=== PATIENT | female | born 2000 | race Caucasian/White ===

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

== ENCOUNTER 2020-01-16 21:36 | Emergency (ER) | payer SELFPAY ==
[~2020-01-16] VITALS: Ht 167.6 cm; Wt 72.7 kg
[2020-01-16 23:50] LABS: COLLECTION METHOD CLEAN CATCH
[2020-01-17 00:01] LABS: MUCOUS Present /lpf; PH 7 (5-8); SQUAMOUS EPITHELIAL 0-2 /hpf; URINE APPEARANCE Clear; URINE BACTERIA None Seen /hpf; URINE BILIRUBIN Negative (NEGATIVE); URINE BLOOD Negative (NEGATIVE); URINE COLOR Yellow; URINE GLUCOSE Negative (NEGATIVE); URINE KETONE Negative (NEGATIVE); URINE LEUKOCYTE ESTERASE Negative (NEGATIVE); URINE NITRATE Negative (NEGATIVE); URINE PROTEIN(semi-quant) Negative (NEGATIVE); URINE RBC 0-2 /hpf
[2020-01-17 00:30] LABS: BASO % 0.6 % (0.0-2.0); EOS # 0.1 (0.0-0.7); EOS % 2.3 % (0-4.0); GRAN # 3.6 (1.4-6.5); GRAN % 58.8 % (42.2-75.2); HEMATOCRIT 40.2 % (35.0-45.0); HEMOGLOBIN 13.2 g/dl (12.0-15.0); LYMPH # 1.9 (1.2-3.4); LYMPH % 30.6 % (20.0-51.0); MEAN CELL VOLUME 79 fl (80.0-95.0); MEAN CORPUSCULAR HEMOGLOBIN 26 pg (26.0-32.0); MEAN CORPUSCULAR HGB CONC 33 g/dl (33.0-37.0); MEAN PLATELET VOLUME 10.3 fl (7.4-10.4); MONO # 0.5 (0.1-0.6); MONO % 7.4 % (1.7-9.3); PLATELET COUNT 265 K/mm3 (130-400); RED BLOOD COUNT 5.09 M/mm3 (4.10-5.30); REDCELL DISTRIBUTION WIDTH-CV 12.3 % (11.5-14.5)
[2020-01-17 00:46] LABS: ALANINE AMINOTRANSFERASE 13 U/L (4-34); ALBUMIN 4.4 gm/dL (3.5-5.0); ALKALINE PHOSPHATASE 63 U/L (50-136); ANION GAP 10 mmol/L (7-16); AST,SGOT 15 U/L (15-37); BILIRUBIN,TOTAL 0.3 mg/dL (0.0-1.0); BLOOD UREA NITROGEN 12 mg/dL (7-17); C-REACTIVE PROTEIN < 0.5 mg/dL (0.0-0.9); CALCIUM 9.2 mg/dL (8.4-10.2); CARBON DIOXIDE 25 mmol/L (22-30); CHLORIDE 107 mmol/L (98-107); CREATININE, serum 0.65 (0.52-1.25); GLUCOSE 106 mg/dL (74-106); LIPASE 91 U/L (23-300); POTASSIUM 3.6 mmol/L (3.4-5.0); SODIUM 142 mmol/L (137-145); TOTAL PROTEIN 7.3 gm/dL (6.4-8.2)
[2020-01-17 04:13] VITALS: BP 116/76; PULSE 86; TEMP 98.1
== END 2020-01-17 04:24 | disposition home or self-care (01) ==
LOC: COL.ER 21:36
PROVIDERS: Physician Assistant
DX: R10.84 Generalized abdominal pain (principal); Z87.891 Personal history of nicotine dependence; Z90.89 Acquired absence of other organs
CPT/HCPCS: J1885; J2405; J7030; Q9967

== ENCOUNTER → 2020-09-20 | Outpatient (CLI) | payer MEDICAID ==
[~2020-09-20] MED LIST changes: +PROTONIX 40MG T40 MG PO
== END ==
LOC: COL.RAD 11:04
DX: N20.0 Calculus of kidney (principal); Z90.49 Acquired absence of other specified parts of digestive tract
CPT/HCPCS: Q9967

== ENCOUNTER 2020-10-26 09:28 | Emergency (ER) | payer MEDICAID ==
[~2020-10-26] VITALS: Ht 167.6 cm; Wt 78.6 kg
[2020-10-26 09:45] VITALS: TEMP 98.5
[2020-10-26 10:23] LABS: COLLECTION METHOD CLEAN CATCH
[2020-10-26 10:28] LABS: BASO % 0.4 % (0.0-2.0); EOS # 0.1 (0.0-0.7); EOS % 1.3 % (0-4.0); GRAN # 6.6 (1.4-6.5); GRAN % 79.5 % (42.2-75.2); HEMOGLOBIN 14.2 g/dl (12.0-15.0); LYMPH # 1.1 (1.2-3.4); LYMPH % 13.1 % (20.0-51.0); MEAN CELL VOLUME 78 fl (80.0-95.0); MEAN CORPUSCULAR HEMOGLOBIN 26 pg (26.0-32.0); MEAN CORPUSCULAR HGB CONC 33 g/dl (33.0-37.0); MEAN PLATELET VOLUME 9.9 fl (7.4-10.4); MONO # 0.5 (0.1-0.6); MONO % 5.5 % (1.7-9.3); PLATELET COUNT 303 K/mm3 (130-400); RED BLOOD COUNT 5.51 M/mm3 (4.10-5.30); REDCELL DISTRIBUTION WIDTH-CV 12.3 % (11.5-14.5)
[2020-10-26 10:31] LABS: MUCOUS Present /lpf; PH 7 (5-8); URINE APPEARANCE Hazy; URINE BACTERIA None Seen /hpf; URINE BILIRUBIN Negative (NEGATIVE); URINE BLOOD 3+ (NEGATIVE); URINE COLOR Yellow; URINE GLUCOSE Negative (NEGATIVE); URINE KETONE Negative (NEGATIVE); URINE LEUKOCYTE ESTERASE Trace (NEGATIVE); URINE NITRATE Negative (NEGATIVE); URINE PROTEIN(semi-quant) Negative (NEGATIVE); URINE RBC 0-2 /hpf; URINE UROBILINOGEN Negative (NEGATIVE)
[2020-10-26] MEDS ORDERED: CEPHALEXIN500 M1 PO (12:31)
[2020-10-26 12:48] VITALS: BP 128/78; PULSE 78
== END 2020-10-26 12:49 | disposition home or self-care (01) ==
LOC: COL.ER 09:28
PROVIDERS: Physician Assistant
DX: K59.00 Constipation, unspecified (principal); N39.0 Urinary tract infection, site not specified; Z87.891 Personal history of nicotine dependence
CPT/HCPCS: J1885; J7030

== ENCOUNTER 2021-03-15 13:56 | Emergency (ER) | payer MEDICAID ==
[~2021-03-15] VITALS: Ht 167.6 cm; Wt 70.5 kg
[2021-03-15 14:10] VITALS: TEMP 98.4
[2021-03-15 14:54] LABS: COLLECTION METHOD CLEAN CATCH
[2021-03-15 15:00] LABS: BASO % 0.4 % (0.0-2.0); EOS % 0.5 % (0-4.0); GRAN # 4.4 (1.4-6.5); GRAN % 78.3 % (42.2-75.2); HEMATOCRIT 38.6 % (35.0-45.0); HEMOGLOBIN 13.3 g/dl (12.0-15.0); LYMPH # 0.7 (1.2-3.4); LYMPH % 12.7 % (20.0-51.0); MEAN CELL VOLUME 78 fl (80.0-95.0); MEAN CORPUSCULAR HEMOGLOBIN 27 pg (26.0-32.0); MEAN CORPUSCULAR HGB CONC 35 g/dl (33.0-37.0); MEAN PLATELET VOLUME 10.3 fl (7.4-10.4); MONO # 0.5 (0.1-0.6); MONO % 7.9 % (1.7-9.3); PLATELET COUNT 222 K/mm3 (130-400); RED BLOOD COUNT 4.96 M/mm3 (4.10-5.30)
[2021-03-15 15:03] LABS: MUCOUS Present /lpf; PH 7 (5-8); URINE APPEARANCE Cloudy; URINE BACTERIA Rare /hpf; URINE BILIRUBIN Negative (NEGATIVE); URINE BLOOD Negative (NEGATIVE); URINE COLOR Yellow; URINE GLUCOSE Negative (NEGATIVE); URINE KETONE Trace (NEGATIVE); URINE LEUKOCYTE ESTERASE 1+ (NEGATIVE); URINE NITRATE Negative (NEGATIVE); URINE PROTEIN(semi-quant) 1+ (NEGATIVE); URINE UROBILINOGEN >=4.0 mg/dL (NEGATIVE)
[2021-03-15 15:05] LABS: ALBUMIN 4.3 gm/dL (3.5-5.0); BILIRUBIN,TOTAL 0.3 mg/dL (0.0-1.0); CALCIUM 9.4 mg/dL (8.4-10.2); CREATININE, serum 0.39 (0.52-1.25); POTASSIUM 3.8 mmol/L (3.4-5.0); TOTAL PROTEIN 7.6 gm/dL (6.4-8.2)
[2021-03-15 16:38] VITALS: BP 103/62; PULSE 73
== END 2021-03-15 16:40 | disposition home or self-care (01) ==
LOC: COL.ER 13:56
PROVIDERS: Physician Assistant
DX: O21.9 Vomiting of pregnancy, unspecified (principal); O99.281 Endocrine, nutritional and metabolic diseases complicating pregnancy, first trimester; E86.0 Dehydration; Z3A.13 13 weeks gestation of pregnancy
CPT/HCPCS: J2765; J7030

== ENCOUNTER 2021-04-06 21:57 | Emergency (ER) | payer MEDICAID ==
[~2021-04-06] VITALS: Ht 167.6 cm; Wt 71.8 kg
[2021-04-06 22:05] VITALS: TEMP 98.5
[2021-04-06 23:12] LABS: BASO % 0.2 % (0.0-2.0); EOS % 0.8 % (0-4.0); GRAN # 3.9 (1.4-6.5); GRAN % 72.3 % (42.2-75.2); HEMOGLOBIN 12.3 g/dl (12.5-16.0); LYMPH # 1.1 (1.2-3.4); MEAN CELL VOLUME 78 fl (80.0-100.0); MEAN CORPUSCULAR HEMOGLOBIN 27 pg (27.0-31.0); MEAN CORPUSCULAR HGB CONC 34 g/dl (33.0-37.0); MEAN PLATELET VOLUME 10.2 fl (7.4-10.4); MONO # 0.3 (0.1-0.6); MONO % 5.3 % (1.7-9.3); PLATELET COUNT 192 K/mm3 (130-400); RED BLOOD COUNT 4.61 M/mm3 (4.10-5.30); REDCELL DISTRIBUTION WIDTH-CV 13.5 % (11.5-14.5)
[2021-04-06 23:24] LABS: ALBUMIN 3.7 gm/dL (3.5-5.0); BILIRUBIN,TOTAL 0.3 mg/dL (0.0-1.0); CALCIUM 8.9 mg/dL (8.4-10.2); CREATININE, serum 0.34 (0.52-1.25); POTASSIUM 3.4 mmol/L (3.4-5.0); TOTAL PROTEIN 6.8 gm/dL (6.4-8.2)
[2021-04-07] MEDS ORDERED: ZOFRAN ODT4 MG PO (01:43)
[2021-04-07 01:55] VITALS: BP 115/81; PULSE 80
== END 2021-04-07 02:00 | disposition home or self-care (01) ==
LOC: COL.ER 21:57
PROVIDERS: Personal Emergency Response Attendant
DX: O99.412 Diseases of the circulatory system complicating pregnancy, second trimester (principal); R07.89 Other chest pain; R05 Cough; O21.9 Vomiting of pregnancy, unspecified; O99.282 Endocrine, nutritional and metabolic diseases complicating pregnancy, second trimester; E86.0 Dehydration; O30.042 Twin pregnancy, dichorionic/diamniotic, second trimester; Z3A.16 16 weeks gestation of pregnancy; Z86.16 Personal history of COVID-19
CPT/HCPCS: J2405; J7030; Q9967

== ENCOUNTER 2021-05-05 12:21 | Outpatient (CLI) | payer MEDICAID ==
[~2021-05-05] VITALS: Ht 167.6 cm; Wt 74.5 kg
--- NOTE | 2021-05-05 12:40 | NUR ---
Pt arrived on unit with complaints of cramping, pressure and vomiting "black stuff" starting this morning. Vital signs WNL. [place] monitor started. Doppler done. SVE done closed/thick/high. Information reviewed with Dr. Cervantes who is on the unit. Dr. Cervantes to the bedside for discuss and evaluation. Orders for IV fluids and PO pepcid received. Order for toco monitor only also received.
[2021-05-05] MEDS ORDERED: ASPIRIN 81M81 MG/TA2 PO (12:57)
[2021-05-05] MEDS ORDERED: PRENATAL (12:57)
[2021-05-05 13:45] VITALS: BP 113/58; PULSE 79; TEMP 98.2
--- NOTE | 2021-05-05 15:10 | NUR ---
Discharge instructions and follow up care reviewed with pt and boyfriend at the bedside. Both verbalized an understanding, agreed with the plan and states no questions or concerns at this time.
== END 2021-05-05 15:10 | disposition home or self-care (01) ==
LOC: LDRO 12:21 → COL.ER 12:21 → LDRO 12:21 → EDSTATUS 12:33 → LDRO 15:10
DX: O26.892 Other specified pregnancy related conditions, second trimester (principal); R11.10 Vomiting, unspecified; R25.2 Cramp and spasm; Z3A.20 20 weeks gestation of pregnancy
CPT/HCPCS: J7120

== ENCOUNTER 2021-05-16 22:03 | Outpatient (CLI) | payer MEDICAID ==
[~2021-05-16] VITALS: Ht 167.6 cm; Wt 74.5 kg
[~2021-05-16 22:03] MED LIST changes: +ASPIRIN 81M81 MG/TA2 PO; +PRENATAL
--- NOTE | 2021-05-16 22:10 | NUR ---
to unit via wheelchair for labor assessment, accompanied by spouse. Into bathroom to put gown on, accompanied by spouse 2217 Out of bathroom, on bed .Plan of care reviewed. Pt shaking, nervous Pt reports "we were watching a movie and I got short of breath, nauseated, started cramping and I threw up. It looked like blood" Viewed picture they had taken on phone, undigested food noted, with some red noted. Reviewed plan of care, known twin gestation. Pt reports "ever since I had Covid, I get short of breath sometimes " Boyfriend asks pt "Do you think it was a panic attack?" Pt states "I don't have panic attacks" Boyfriend states "Well, it started during that scary movie when that lady got shot". Difficult to maintain FHR tracing, r/t gestation, movements palpated. 2234 Pt relaxed, not shaking. No uterine activity noted on monitor, or by palpation. Pt denies vaginal bleeding or leaking of fluid.
[2021-05-16 22:30] VITALS: BP 114/61; PULSE 69; TEMP 97.2
== END 2021-05-16 23:30 | disposition home or self-care (01) ==
LOC: LDRO 22:03 → LDR 22:47 → LDRO 23:30
DX: O21.2 Late vomiting of pregnancy (principal); O99.512 Diseases of the respiratory system complicating pregnancy, second trimester; R06.02 Shortness of breath; Z3A.22 22 weeks gestation of pregnancy
CPT/HCPCS: OP

== ENCOUNTER 2021-06-06 10:29 | Outpatient (CLI) | payer MEDICAID ==
[~2021-06-06] VITALS: Ht 167.6 cm; Wt 77.7 kg
--- NOTE | 2021-06-06 10:35 | NUR ---
1035- 25.0, G2L1 here for decreased movement in twin b, and pelvic pressure. Reports gush of fluids 2 days ago. Denies VB, or contractions. Ambulatory to LDR3. Oriented to room. Changes into clean gown. Dr. Hobbs at bedside and updated on pt. 1037- EFM explained and placed x2. Diffuculty tracing twin B. Dr. Hobbs at bedside, bedside US by provider for EFM placement. Vtx, vtx presentation. VS obtained, assessment completed. UA collected. POC reviewed, patient verbalizes understanding. 1110- FHR tracing x1. RN to bedside and adj. EFM. FHR tracing x2.
[2021-06-06 11:00] VITALS: BP 115/72; PULSE 79; TEMP 98.4
[2021-06-06 11:26] LABS: COLLECTION METHOD CLEAN CATCH
[2021-06-06 11:30] VITALS: BP 112/55; PULSE 78
[2021-06-06 11:49] LABS: MUCOUS Present /lpf; PH 7 (5-8); SQUAMOUS EPITHELIAL 20-50 /hpf; URINE APPEARANCE Cloudy; URINE BACTERIA Rare /hpf; URINE BILIRUBIN Negative (NEGATIVE); URINE BLOOD Negative (NEGATIVE); URINE COLOR Yellow; URINE GLUCOSE Negative (NEGATIVE); URINE KETONE Negative (NEGATIVE); URINE LEUKOCYTE ESTERASE 2+ (NEGATIVE); URINE NITRATE Negative (NEGATIVE); URINE PROTEIN(semi-quant) Negative (NEGATIVE); URINE RBC 0-2 /hpf
--- NOTE | 2021-06-06 11:58 | NUR ---
1158- Dr. Hobbs updated on pt. See physician notification. 1200- SVE by this RN cl/th/hi. Unchanged. EFM off. Pt up to bathroom to change. 1220- Discharge instructions reviewed with patient who verbalizes understanding. Ambulatory off unit.
[2021-06-06 12:01] VITALS: BP 114/62; PULSE 71; TEMP 98.6
--- NOTE | 2021-06-06 12:05 | NUR ---
Prescription for 100mg Macrobid BID x7 days called into [facility] per patient request, and per physician's telephone order.
== END 2021-06-06 12:20 | disposition home or self-care (01) ==
LOC: LDRO 10:29
PROVIDERS: Obstetrics & Gynecology
DX: O36.8129 Decreased fetal movements, second trimester, other fetus (principal); O26.892 Other specified pregnancy related conditions, second trimester; R10.2 Pelvic and perineal pain; Z3A.25 25 weeks gestation of pregnancy

== ENCOUNTER 2021-06-12 12:38 | Outpatient (CLI) | payer MEDICAID ==
[~2021-06-12] VITALS: Ht 167.6 cm; Wt 78.2 kg
[2021-06-12 12:46] VITALS: BP 118/78; PULSE 104; TEMP 98.8
[2021-06-12 13:00] VITALS: PULSE 78
[2021-06-12] MEDS ORDERED: MACROBID 1100 MG/CAP PO (13:16)
[2021-06-12 13:18] LABS: BASO % 0.4 % (0.0-2.0); EOS # 0.1 (0.0-0.7); EOS % 0.6 % (0-4.0); GRAN # 6.8 (1.4-6.5); GRAN % 81.9 % (42.2-75.2); HEMOGLOBIN 10.7 g/dl (12.5-16.0); LYMPH # 0.8 (1.2-3.4); LYMPH % 10.1 % (20.0-51.0); MEAN CELL VOLUME 85 fl (80.0-100.0); MEAN CORPUSCULAR HEMOGLOBIN 28 pg (27.0-31.0); MEAN CORPUSCULAR HGB CONC 33 g/dl (33.0-37.0); MEAN PLATELET VOLUME 10.5 fl (7.4-10.4); MONO # 0.5 (0.1-0.6); MONO % 6.2 % (1.7-9.3); PLATELET COUNT 189 K/mm3 (130-400); RED BLOOD COUNT 3.83 M/mm3 (4.10-5.30); REDCELL DISTRIBUTION WIDTH-CV 13.7 % (11.5-14.5)
[2021-06-12 13:20] LABS: HEMATOCRIT 32.5 % (37.0-47.0)
[2021-06-12 13:29] LABS: ALBUMIN 3.4 gm/dL (3.5-5.0); BILIRUBIN,TOTAL 0.2 mg/dL (0.0-1.0); CALCIUM 8.5 mg/dL (8.4-10.2); CREATININE, serum 0.53 (0.52-1.25); POTASSIUM 3.7 mmol/L (3.4-5.0); TOTAL PROTEIN 6.1 gm/dL (6.4-8.2)
[2021-06-12 13:30] VITALS: PULSE 79
[2021-06-12 14:00] VITALS: PULSE 82
--- NOTE | 2021-06-12 14:03 | NUR ---
1244 PATIENT HERE FOR COMPLAINTS OF PAIN IN BACK GETTING WORSE AND INTO NECK. CONTINUES TO TAKE MACROBID FOR UTI. EFM ON LEFT LOWER QUAD FHT 120 BABY VERY ACTIVE. BABY B RIGHT LOWER QUAD FHT 120 BABY VERY ACTIVE. NO CONTRACTIONS NOTED OR FELT BY PATIENT. SVE [address] SEXTON CALLED AND UPDATEED ON ALL ABOVE INFORMATION.
[2021-06-12 14:06] LABS: COLLECTION METHOD CATHETER
[2021-06-12 14:43] LABS: PH 8 (5-8); SQUAMOUS EPITHELIAL 0-2 /hpf; URINE APPEARANCE Clear; URINE BACTERIA None Seen /hpf; URINE BILIRUBIN Negative (NEGATIVE); URINE BLOOD Negative (NEGATIVE); URINE COLOR Straw; URINE GLUCOSE Negative (NEGATIVE); URINE KETONE Negative (NEGATIVE); URINE LEUKOCYTE ESTERASE Negative (NEGATIVE); URINE NITRATE Negative (NEGATIVE); URINE PROTEIN(semi-quant) Negative (NEGATIVE); URINE RBC 0-2 /hpf; URINE UROBILINOGEN Negative (NEGATIVE); URINE WBC 0-2 /hpf
[2021-06-12 14:45] VITALS: BP 106/53; PULSE 73
--- NOTE | 2021-06-12 15:06 | NUR ---
1440 DR SEXTON CALLED AND ALL LABS REPORTED AT THIS TIME. ORDERS TO DISMISS PATIENT TO HOME. 1450 DISMISS TO HOME AFTER ALL DISCHARGE INSTRUCTIONS GIVEN WITH VERBAL UNDERSTANDING NOTED
== END 2021-06-12 14:50 | disposition home or self-care (01) ==
LOC: LDRO 12:38 → LDR 12:45 → LDRO 14:50
PROVIDERS: Obstetrics & Gynecology
DX: O26.899 Other specified pregnancy related conditions, unspecified trimester (principal); M54.9 Dorsalgia, unspecified; Z3A.25 25 weeks gestation of pregnancy

== ENCOUNTER 2021-08-08 15:58 | Outpatient (CLI) | payer MEDICAID ==
[~2021-08-08] VITALS: Ht 167.6 cm; Wt 84.1 kg
[~2021-08-08 15:58] MED LIST changes: +MACROBID 1100 MG/CAP PO
--- NOTE | 2021-08-08 16:05 | NUR ---
Pt arrives on unit ambulatory from office visit for NST. Denies vaginal bleeding, LOF, regular ctx and reports GFM. EFM and toco applied. VSS. Admission assessment completed. Dr. Cervantes notified. Orders to observe x30 minutes. If reactive ok to depart.
[2021-08-08 16:37] VITALS: BP 114/66; PULSE 91; TEMP 98
== END 2021-08-08 16:40 | disposition home or self-care (01) ==
LOC: LDRO 15:58
DX: O62.9 Abnormality of forces of labor, unspecified (principal); Z3A.34 34 weeks gestation of pregnancy

== ENCOUNTER 2021-08-12 16:00 | Outpatient (CLI) | payer MEDICAID ==
[~2021-08-12] VITALS: Ht 167.6 cm; Wt 85.5 kg
[2021-08-12 16:20] VITALS: BP 128/75; PULSE 97; TEMP 97.4
[2021-08-12 16:55] VITALS: BP 125/72; PULSE 82
--- NOTE | 2021-08-12 17:10 | NUR ---
1620 PATIENT HERE WITH COMPLAINTS OF CONTRACTIONS, SWOLLEN FEET. EFM ON FHT BABY A RIGHT LOWER QUAD FHT 120. GOOD ACCELERATIONS. FHT BABY B RIGHT UPPER QUAD 116 GOOD ACCELERATIONS. BOTH BABYS VERY ACTIVE. SVE 50/-[address] TEE CALLED AND UPDATED ON ALL ABOVE INFORMATION. ORDERS TO START IV AND GIVE BOLUS OF FLUIDS.
--- NOTE | 2021-08-12 17:51 | NUR ---
174 DR TEE CALLED WITH UPDATE. IVF FINISHED AND PAITENT STATES STILL FEELS CONTRACTIONS BUT NOT STRONG. CONTRACTIONS 5-6 MIN APART. ORDERS TO HANG 2ND BAG AND GIVE BRETHINE 0.25 SQ NOW.
[2021-08-12 18:01] VITALS: PULSE 69
--- NOTE | 2021-08-12 18:40 | NUR ---
called and updated on pts status. Pt denies feeling any contractions after medication and IVFs. Discharge order received. See physican notification. Pt off monitors to change clothes. 1900: IV DC'd. Discharge instructions given to pt and spouse. Questions answered. Pt ambualtory off unit and home with spouse.
== END 2021-08-12 19:00 | disposition home or self-care (01) ==
LOC: LDRO 16:00 → LDR 16:50 → LDRO 19:00
DX: O62.9 Abnormality of forces of labor, unspecified (principal); Z3A.00 Weeks of gestation of pregnancy not specified
CPT/HCPCS: OP; J3105; J7120

== ENCOUNTER → 2021-09-24 | Outpatient (CLI) | payer MEDICAID ==
[~2021-09-24] MED LIST changes: +ROXICODONE 55 MG/TAB PO
== END ==
LOC: COL.RAD 08:15
DX: K76.89 Other specified diseases of liver (principal); Z90.49 Acquired absence of other specified parts of digestive tract

== ENCOUNTER 2021-10-12 04:20 | Emergency (ER) | payer MEDICAID ==
[~2021-10-12 04:20] MED LIST changes: -ROXICODONE 55 MG/TAB PO
[2021-10-12 04:56] VITALS: TEMP 98.2
[2021-10-12 05:06] LABS: COLLECTION METHOD CLEAN CATCH
[2021-10-12 05:17] LABS: BASO % 0.5 % (0.0-2.0); EOS # 0.2 K/mm3 (0.0-0.7); EOS % 2.5 % (0-4.0); GRAN # 4.4 K/mm3 (1.4-6.5); GRAN % 69.3 % (42.2-75.2); HEMATOCRIT 41.6 % (37.0-47.0); HEMOGLOBIN 13.8 g/dl (12.5-16.0); LYMPH # 1.3 K/mm3 (1.2-3.4); LYMPH % 20.9 % (20.0-51.0); MEAN CELL VOLUME 80 fl (80.0-100.0); MEAN CORPUSCULAR HEMOGLOBIN 27 pg (27.0-31.0); MEAN CORPUSCULAR HGB CONC 33 g/dl (33.0-37.0); MEAN PLATELET VOLUME 10.2 fl (7.4-10.4); MONO # 0.4 K/mm3 (0.1-0.6); MONO % 6.6 % (1.7-9.3); PLATELET COUNT 335 K/mm3 (130-400); RED BLOOD COUNT 5.19 M/mm3 (4.10-5.30); REDCELL DISTRIBUTION WIDTH-CV 12.3 % (11.5-14.5)
[2021-10-12 05:20] LABS: BUDDING YEAST Present (NOT PRESENT); MUCOUS Present (NOT PRESENT); PH 5 (5-8); SQUAMOUS EPITHELIAL 0-2 /hpf (0-10); URINE APPEARANCE Cloudy (CLEAR/HAZY); URINE BACTERIA None Seen (NONE SEEN); URINE BILIRUBIN Negative (NEGATIVE); URINE BLOOD 3+ (NEGATIVE); URINE COLOR Yellow (YELLOW); URINE GLUCOSE Negative (NEGATIVE); URINE KETONE Negative (NEGATIVE); URINE LEUKOCYTE ESTERASE Negative (NEGATIVE); URINE NITRATE Negative (NEGATIVE); URINE PROTEIN(semi-quant) 1+ (NEGATIVE); URINE RBC >50 /hpf (0-2); URINE UROBILINOGEN Negative (NEGATIVE)
[2021-10-12 05:38] LABS: ALBUMIN 4.6 gm/dL (3.5-5.0); BILIRUBIN,TOTAL 0.5 mg/dL (0.2-1.2); CALCIUM 9.5 mg/dL (8.4-10.2); CREATININE, serum 0.79 mg/dL (0.57-1.11); POTASSIUM 3.6 mmol/L (3.5-4.5); TOTAL PROTEIN 7.9 gm/dL (6.2-8.1)
[2021-10-12] MEDS ORDERED: ROXICODONE 55 MG/TAB PO (06:36)
[2021-10-12] MEDS ORDERED: ZOFRAN ODT4 MG PO (06:36)
[2021-10-12 06:50] VITALS: BP 130/76; PULSE 74
== END 2021-10-12 06:50 | disposition home or self-care (01) ==
LOC: COL.ER 04:20
PROVIDERS: Student in an Organized Health Care Education/Training Program
DX: N20.2 Calculus of kidney with calculus of ureter (principal); Z32.02 Encounter for pregnancy test, result negative
CPT/HCPCS: J1170; Q9967

== ENCOUNTER 2022-11-09 16:09 | Emergency (ER) | payer MEDICAID ==
[~2022-11-09] VITALS: Ht 167.6 cm; Wt 68.2 kg
[~2022-11-09 16:09] MED LIST changes: +ROXICODONE 55 MG/TAB PO
[2022-11-09 16:20] VITALS: TEMP 97.9
[2022-11-09 17:46] VITALS: BP 101/64; PULSE 67
== END 2022-11-09 17:45 | disposition home or self-care (01) ==
LOC: COL.ER 16:09
DX: S20.211A Contusion of right front wall of thorax, initial encounter (principal); Z28.310 Unvaccinated for COVID-19; W19.XXXA Unspecified fall, initial encounter

== ENCOUNTER 2024-05-21 12:45 | Emergency (ER) | payer MEDICAID ==
[~2024-05-21] VITALS: Ht 167.6 cm; Wt 68.2 kg
[2024-05-21 12:59] VITALS: TEMP 98.4
[2024-05-21] MEDS ORDERED: NORCO 325 MG-51 TAB PO (13:42)
[2024-05-21] MEDS ORDERED: CEPHALEXIN500 M1 PO (13:42)
[2024-05-21 13:50] VITALS: BP 124/78; PULSE 74
== END 2024-05-21 13:50 | disposition home or self-care (01) ==
LOC: COL.ER 12:45
DX: K11.20 Sialoadenitis, unspecified (principal)

== ENCOUNTER → 2024-06-19 | Outpatient (CLI) | payer MEDICAID | LOC: MHCPAIN 14:29 | DX: M54.50 Low back pain, unspecified (principal); M53.3 Sacrococcygeal disorders, not elsewhere classified; M79.2 Neuralgia and neuritis, unspecified | CPT/HCPCS: G0463 ==

== ENCOUNTER → 2024-08-07 | Outpatient (CLI) | payer MEDICAID ==
[~2024-08-07] MED LIST changes: +Iohexol 300 - 10 ML VIAL ONE; +Lidocaine PF 1% (10 MG/ML) 5 ML VIAL ONE; +Triamcinolone 40 MG/ML 1 ML VIAL ONE
== END ==
LOC: MHCPAIN 07-03 09:08
DX: M54.50 Low back pain, unspecified (principal); M53.3 Sacrococcygeal disorders, not elsewhere classified
CPT/HCPCS: G0260; J3301; Q9967